=== PATIENT | male | born 1940 | race Caucasian/White ===

== ENCOUNTER 2021-08-19 04:32 | Observation (INO) ==
[2021-08-19] MEDS ORDERED: Naloxone 0.4 MG/ML INJ IVP PRN (09:58)
[2021-08-19] MEDS ORDERED: *HR* LORazepam 0.5 MG TABLET PO PRN (14:28)
[2021-08-19] MEDS: OLANZapine 5 MG TAB.RAPDIS PO SCH (20:54)
[2021-08-19] MEDS: *HR* LORazepam 0.5 MG TABLET PO SCH (20:55)
[2021-08-19] MEDS: Apixaban 5 MG TABLET PO SCH (20:55)
[2021-08-20 04:40] LABS: Immature Granulocytes % 0.4 % (0-4)
[2021-08-20 04:42] LABS: Basophils % 0.6 %; Eosinophils # 0.2 K/mcL (0.0-0.6); Eosinophils % 3.6 %; Hematocrit 46.5 % (37.5-50.1); Hemoglobin 15.6 g/dL (12.9-16.9); Immature Platelets 6.2 % (1.1-6.1); Mean Corpuscular HGB Conc 33.5 g/dL (31.6-35.5); Mean Corpuscular Hemoglobin 29.1 pg (28.0-33.3); Mean Corpuscular Volume 86.8 fL (83.0-100.0); Mean Platelet Volume 11.5 fL (9.4-12.4); Monocytes # 0.3 K/mcL (0.0-1.3); Monocytes % 6.5 %; Neutrophils # 2.7 K/mcL (1.6-8.9); Platelet Count 127 K/mcL (140-400); Red Blood Count 5.36 M/mcL (4.19-5.50); Red Cell Distribution Width 14.2 % (11.5-14.5); Segmented Neutrophils % 50.9 %; White Blood Count 5.2 K/mcL (4.3-11.1)
[2021-08-20 04:46] LABS: INR 1.7; Prothrombin Time 18.4 Seconds (9.4-12.1)
[2021-08-20 05:00] LABS: Alanine Aminotransferase 8 Units/L (7-52); Albumin 3.5 g/dL (3.5-5.7); Albumin/Globulin Ratio 1.2 (1.1-2.2); Alkaline Phosphatase 33 Units/L (34-104); Aspartate Amino Transferase 13 Units/L (13-39); BUN/Creatinine Ratio 18 (6-26); Bilirubin,Total 0.7 mg/dL (0.3-1.0); Blood Urea Nitrogen 15 mg/dL (8-23); Calcium 9.1 mg/dL (8.6-10.3); Carbon Dioxide 26 mEq/L (23-29); Chloride 106 mEq/L (98-107); Chol/HDL Ratio 6.4 (0-4.9); Cholesterol 185 mg/dL (< 200); Globulin 2.9 g/dL (2.4-3.5); Glucose 107 mg/dL (70-105); HDL Cholesterol 29 mg/dL (40-59); LDL Cholesterol,Calculated 124 mg/dL (< 100); Osmolality,Calculated 291 (280-300); Potassium 3.9 mEq/L (3.5-5.1); Sodium 140 mEq/L (136-145); Total Protein 6.4 g/dL (6.4-8.9); Triglycerides 159 mg/dL (< 150); eGFR For African Americans > 60 (> 60); eGFR For Non-African Americans > 60 (> 60)
[2021-08-20 07:18] LABS: Estimated Average Glucose 140 mg/dl; Hemoglobin A1C 6.5 %
[2021-08-20] MEDS: OLANZapine 5 MG TAB.RAPDIS PO SCH ×2 (09:59→19:55)
[2021-08-20] MEDS: lisinopriL 20 MG TABLET PO SCH (10:01)
[2021-08-20] MEDS: amLODIPine 5 MG TABLET PO SCH (10:02)
[2021-08-20] MEDS: Apixaban 5 MG TABLET PO SCH ×2 (10:02→19:55)
[2021-08-20] MEDS: Aspirin Enteric Coated 81 MG Tablet PO SCH (10:02)
[2021-08-20] MEDS: Metoprolol XL (24 HR) Succ 25 MG TAB.ER.24H PO SCH (10:02)
[2021-08-20] MEDS: *HR* LORazepam 0.5 MG TABLET PO SCH ×2 (10:02→19:55)
[2021-08-20] MEDS ORDERED: Isovue-370 500 ML BOTTLE IVP ONE (15:49)
[2021-08-21] MEDS: Aspirin Enteric Coated 81 MG Tablet PO SCH (07:26)
[2021-08-21] MEDS: Metoprolol XL (24 HR) Succ 25 MG TAB.ER.24H PO SCH (07:26)
[2021-08-21] MEDS: OLANZapine 5 MG TAB.RAPDIS PO SCH (07:26)
[2021-08-21] MEDS: *HR* LORazepam 0.5 MG TABLET PO SCH (07:27)
[2021-08-21] MEDS: Apixaban 5 MG TABLET PO SCH (07:27)
[2021-08-21] MEDS: lisinopriL 20 MG TABLET PO SCH (07:27)
[2021-08-21] MEDS: amLODIPine 5 MG TABLET PO SCH (07:27)
[2021-08-21 14:23] VITALS: BP 102/63; PULSE 72; TEMP 98.2; O2SAT 97
[2021-08-22] MEDS ORDERED: Aspirin Enteric Coated 325 MG Tablet PO SCH (09:00)
== END 2021-08-21 15:53 ==
LOC: 3BNU → SUATTDRO 09:19
PROVIDERS: ADMIT Family Medicine; ATTEND Internal Medicine